=== PATIENT | male | born 1970 | race Caucasian/White ===

== ENCOUNTER 2019-08-22 23:03 | Emergency (ER) | payer MEDICAID ==
--- NOTE | 2019-08-22 23:15 | NUR ---
Attempted to triage pt, NAx1
--- NOTE | 2019-08-22 23:21 | NUR ---
This rn inquired w/registration and reg stated he LWBS.
[2019-08-23] MEDS ORDERED: CEPH500T PO (00:49)
[2019-08-23] MEDS ORDERED: PHEN100C4 PO (00:51)
[2019-08-23] MEDS ORDERED: RISP2TAB3 PO (00:51)
== END 2019-08-23 01:18 | disposition left against medical advice (07) ==
LOC: ED 08-23 01:00
DX: R06.02 Shortness of breath (principal); Z53.21 Procedure and treatment not carried out due to patient leaving prior to being seen by health care provider

== ENCOUNTER 2019-08-22 23:34 | Emergency (ER) | payer MEDICAID ==
[~2019-08-22] VITALS: Ht 172.7 cm; Wt 60.0 kg
[2019-08-23] MEDS ORDERED: IBUPROFEN 600 MG TABLET PO ONE (00:30)
[2019-08-23] MEDS ORDERED: PHENYTOIN 100 MG CAPSULE PO ONE (00:30)
[2019-08-23 00:37] LABS: BASOPHILS # (AUTO) 0.05 x10^3/uL (0-0.1); BASOPHILS % (AUTO) 1 % (0-1); EOSINOPHILS # (AUTO) 0.22 x10^3/uL (0-0.4); EOSINOPHILS % (AUTO) 2 % (1-7); LYMPHOCYTES # (AUTO) 2.18 x10^3/uL (1-3.4); LYMPHOCYTES % (AUTO) 23 % (22-44); MD NO; MEAN CORPUSCULAR HEMOGLOBIN 29.4 pg (27.5-34.5); MEAN CORPUSCULAR HGB CONC 33.3 g/dL (33.2-36.2); MEAN CORPUSCULAR VOLUME 88.3 fL (81-97); MONOCYTES # (AUTO) 0.93 x10^3/uL (0.2-0.8); MONOCYTES % (AUTO) 10 % (2-9); NEUTROPHILS # (AUTO) 5.95 x10^3/uL (1.8-6.8); NEUTROPHILS % (AUTO) 64 % (42-75); PLATELET COUNT 374 x10^3/uL (130-400); RED BLOOD COUNT 4.59 x10^6/uL (4.38-5.82); RED CELL DISTRIBUTION WIDTH 15.6 % (9.4-14.8)
[2019-08-23 00:44] LABS: ALANINE AMINOTRANSFERASE 63 U/L (12-78); ALBUMIN 3.5 g/dL (3.4-5.0); ANION GAP 8 mmol/L (5-15); CALCIUM 8.7 mg/dL (8.5-10.1); CHLORIDE 106 mmol/L (98-107); CREATININE 1.07 mg/dL (0.7-1.3)
[2019-08-23] MEDS ORDERED: IBUPROFEN 600 MG TABLET ONE (00:44)
[2019-08-23 00:48] LABS: ALKALINE PHOSPHATASE 114 U/L (45-117); BILIRUBIN,TOTAL 0.3 mg/dL (0.2-1.0); TOTAL PROTEIN 7.6 g/dL (6.4-8.2); TROPONIN I < 0.015 ng/mL (0.000-0.045)
[2019-08-23] MEDS ORDERED: CEPH500T PO (00:49)
[2019-08-23] MEDS ORDERED: RISP2TAB3 PO (00:51)
[2019-08-23] MEDS ORDERED: PHEN100C4 PO (00:51)
[2019-08-23 01:00] VITALS: BP 132/83
--- NOTE | 2019-08-23 01:06 | NUR ---
BREAK RN: PT AMBULATED TO DC LOBBY W/ A STEADY GAIT. PROVIDED BUS PASS AND NEW SOCKS UPON REQUEST. VERBALIZED UNDERSTANDING OF DC INSTRUCTIONS.
== END 2019-08-23 01:12 | disposition home or self-care (01) ==
LOC: ED 08-23 00:34
DX: M94.0 Chondrocostal junction syndrome [Tietze] (principal); G40.804 Other epilepsy, intractable, without status epilepticus; F10.10 Alcohol abuse, uncomplicated; Y90.0 Blood alcohol level of less than 20 mg/100 ml; F15.20 Other stimulant dependence, uncomplicated; F17.210 Nicotine dependence, cigarettes, uncomplicated
CPT/HCPCS: 36415; 71045; 80053; 84484; 85025; 93005; 99285

== ENCOUNTER 2019-09-07 22:31 | Emergency (ER) | payer MEDICAID ==
[~2019-09-07] VITALS: Ht 170.2 cm; Wt 66.6 kg
[~2019-09-07 22:31] MED LIST: CEPH500T PO; PHEN100C4 PO; RISP2TAB3 PO
[2019-09-07 23:29] LABS: BASOPHILS # (AUTO) 0.04 x10^3/uL (0-0.1); BASOPHILS % (AUTO) 0 % (0-1); EOSINOPHILS # (AUTO) 0.17 x10^3/uL (0-0.4); EOSINOPHILS % (AUTO) 2 % (1-7); LYMPHOCYTES # (AUTO) 2.71 x10^3/uL (1-3.4); LYMPHOCYTES % (AUTO) 23 % (22-44); MD NO; MEAN CORPUSCULAR HEMOGLOBIN 29.5 pg (27.5-34.5); MEAN CORPUSCULAR HGB CONC 33.5 g/dL (33.2-36.2); MEAN CORPUSCULAR VOLUME 88.1 fL (81-97); MEAN PLATELET VOLUME 6.9 fL (7.4-10.4); MONOCYTES % (AUTO) 7 % (2-9); NEUTROPHILS # (AUTO) 8.04 x10^3/uL (1.8-6.8); NEUTROPHILS % (AUTO) 68 % (42-75); PLATELET COUNT 399 x10^3/uL (130-400); RED BLOOD COUNT 5.07 x10^6/uL (4.38-5.82); RED CELL DISTRIBUTION WIDTH 15.5 % (9.4-14.8)
[2019-09-07 23:41] LABS: ALBUMIN 3.6 g/dL (3.4-5.0); ANION GAP 8 mmol/L (5-15); CALCIUM 8.8 mg/dL (8.5-10.1); CHLORIDE 108 mmol/L (98-107)
[2019-09-07 23:41] LABS: AMPHETAMINE SCREEN, URINE Positive (Negative); BARBITURATE SCREEN, URINE Negative (Negative); BENZODIAZEPINE SCREEN, URINE Negative (Negative); CANNABINOID SCREEN, URINE Negative (Negative); COCAINE SCREEN, URINE Negative (Negative); METHADONE SCREEN, URINE Negative (Negative); OPIATE SCREEN, URINE Negative (Negative)
--- NOTE | 2019-09-07 23:42 | NUR ---
PT SITTING IN VIEW OF NURSES STATION, NO COMPLIANTS AT THIS TIME Addendum: 09/08/19 at 0325 by VEDA aminah boo is working in prior auth
[2019-09-07 23:45] LABS: ALANINE AMINOTRANSFERASE 35 U/L (12-78); ALKALINE PHOSPHATASE 129 U/L (45-117); BILIRUBIN,TOTAL 0.2 mg/dL (0.2-1.0); CREATININE 1.03 mg/dL (0.7-1.3); SALICYLATE LEVEL < 1.7 mg/dL (2.8-20.0); TOTAL PROTEIN 8.2 g/dL (6.4-8.2)
[2019-09-08] MEDS ORDERED: SERT50TA28 PO (00:37)
[2019-09-08] MEDS ORDERED: HYDR-2995 PO (00:37)
[2019-09-08] MEDS ORDERED: TRAZ-175 PO (00:38)
--- NOTE | 2019-09-08 01:13 | NUR ---
PT MOVED TO ROOM 3, TWO BAGS OF BELONGINGS PLACED IN SAFE KEEPING, ROOM SECURE, SITTER IN VIEW
--- NOTE | 2019-09-08 01:22 | NUR ---
TASK RN: REPORT TO SOC MD. PT PREPARED FOR TELEPSYCH CONSULT
--- NOTE | 2019-09-08 02:08 | NUR ---
SOC suggests the pt should be placed on a hold
--- NOTE | 2019-09-08 02:38 | NUR ---
5 BAGS OF BELONGINGS PLACED IN LOCKER
--- NOTE | 2019-09-08 04:02 | NUR ---
PT SLEEPING, RESPIRATIONS EVEN AND UNLABORED. ROOM REMAINS SECURE, SITTER OUTSIDE DOOR
--- NOTE | 2019-09-08 05:34 | NUR ---
PT SLEEPING, RESPIRATIONS EVEN AND UNLABORED. NO DISTRESS NTOED. ROOM REMAINS SECURE, SITTER OUTSIDE DOOR
--- NOTE | 2019-09-08 06:42 | NUR ---
PT CONTINUES TO SLEEP, NO DISTRESS NOTED. RESPIRATIONS EVEN AND UNLABORED. SITTER OUTSIDE DOOR, ROOM REMAINS SECURE
--- NOTE | 2019-09-08 07:02 | NUR ---
Received bedside report from Elizabeth Zhao. All questions answered. Pt resting with eyes closed and unlabored respirations with even chest rise and fall. No needs expressed at this time. Room secured for SI/HI. Sitter in direct line of sight for observation. Breakfast tray ordered for pt.
--- NOTE | 2019-09-08 08:23 | NUR ---
Pt resting supine on [facility] with eyes closed. Pt alert to voice and is cooperative with ED RN when staff obtaining vital signs, performing physical assessment, and performing suicide reassessment. Pt denies SI/HI at this time. Pt denies needs at this time. Pt denies pain at this time. Sitter in direct line of sight for observation. Room remains secured for SI/HI. Breakfast tray ordered.
--- NOTE | 2019-09-08 10:10 | NUR ---
LATE NOTE ENTRY FOR 929: Pt resting on gurney. Pt provided breakfast tray and ate entire breakfast tray. Pt has unlabored respirations with even chest rise and fall. No needs expressed at this time. sitter near doorway in direct line of sight for observation.
--- NOTE | 2019-09-08 10:11 | NUR ---
Pt resting on gurney with eyes closed and unlabored respirations with even chest rise and fall. No needs expressed at this time. Sitter in direct line of sight for observation.
--- NOTE | 2019-09-08 10:34 | NUR ---
Psych HOOK AND EYE SEWING MACHINE OPERATOR at bedside with pt at this time. Sitter in direct line of sight for observation. No needs expressed at this time.
--- NOTE | 2019-09-08 12:36 | NUR ---
Lunch tray provided to pt. Sitter at bedside in direct line of sight for observation. No needs expressed at this time. Spoke to [place] at [facility]. [facility] accepting doctor requesting Dilantin lab draws per pt statement to provider of "overdosing on 8-10 of my Dilantin". EDND placed lab order.
--- NOTE | 2019-09-08 13:24 | NUR ---
PT SLEEPING IN ROOM. SITTER MONITORING FROM [facility] FOR SAFETY. ROOM REMAINS SECURE.
--- NOTE | 2019-09-08 14:22 | NUR ---
report given to ida at this time. will call us back later.
--- NOTE | 2019-09-08 14:31 | NUR ---
PT SLEEPING. RESPS EVEN AND UNLABORED. SITTER MONITORING FROM [facility] FOR SAFETY. ROOM REMAINS SECURE.
--- NOTE | 2019-09-08 15:28 | NUR ---
PT SLEEPING. RESPS EVEN AND UNLABORED. SITTER MONITORING FROM [facility] FOR SAFETY. ROOM REMAINS SECURE.
--- NOTE | 2019-09-08 16:20 | NUR ---
PT SLEEPING. RESPS EVEN AND UNLABORED. SITTER MONITORING FROM [facility] FOR SAFETY. ROOM REMAINS SECURE.
--- NOTE | 2019-09-08 16:30 | NUR ---
CALLED AND NOTIFIED [facility] OF DIALNTIN LEVEL
--- NOTE | 2019-09-08 17:09 | NUR ---
PT SLEEPING. RESPS EVEN AND UNLABORED. SITTER MONITORING FROM [facility] FOR SAFETY. ROOM REMAINS SECURE.
--- NOTE | 2019-09-08 17:39 | NUR ---
MEAL TRAY ORDERED AT THIS TIME.
--- NOTE | 2019-09-08 18:33 | NUR ---
PT SLEEPING. RESPS EVEN AND UNLABORED. SITTER MONITORING FROM [facility] FOR SAFETY. ROOM REMAINS SECURE.
--- NOTE | 2019-09-08 19:00 | NUR ---
REPORT GIVEN TO MARQUES BREWER.
--- NOTE | 2019-09-08 19:09 | NUR ---
ASSUMED CARE OF PT. SLEEPING, IN NO ACUTE DISTRESS, RESPIRATIONS EVEN AND UNLABORED. SITTER AT DOOR FOR SAFETY MONITORING.
--- NOTE | 2019-09-08 20:43 | NUR ---
DEMETRIS RN: LABS FAXED PER [facility] REQUEST @ [id number]. CALLED AT [phone] TO FOLLOW UP. PER TECH, "THE NURSE IS ON THE PHONE WITH THE DOCTOR NOW DISCUSSING THIS PATIENT". AWAITING CALL FOR DENIAL OR ACCEPTANCE
[2019-09-08] MEDS ORDERED: RISPERIDONE 1 MG TABLET PO SCH (21:00)
--- NOTE | 2019-09-08 21:59 | NUR ---
REQUESTED MED FROM PHARMACY.
--- NOTE | 2019-09-08 22:15 | NUR ---
MEDICATED PT PER MAR.
--- NOTE | 2019-09-08 22:32 | NUR ---
TP RN: PT ACCEPTED BY [facility], ADMITTING MD TATUM
--- NOTE | 2019-09-08 22:45 | NUR ---
REPORT GIVEN TO JILL AT [facility]. AWAITING TRANSPORT STAFF FOR TRANSFER.
[2019-09-08 22:50] VITALS: BP 120/80
--- NOTE | 2019-09-09 00:24 | NUR ---
TASK RN: [facility] HERE TO TRANSPORT PT TO [facility]. Addendum: 09/09/19 at 0025 by MARYANNE ALL BELONGINGS WITH PT
== END 2019-09-09 00:30 ==
LOC: ED 09-08 01:39
DX: F33.1 Major depressive disorder, recurrent, moderate (principal); F15.129 Other stimulant abuse with intoxication, unspecified; Z72.9 Problem related to lifestyle, unspecified
CPT/HCPCS: 36415; 80053; 80185; 80307; 85025; 99285

== ENCOUNTER 2019-09-16 01:26 | Emergency (ER) | payer MEDICAID ==
[~2019-09-16] VITALS: Ht 170.2 cm; Wt 62.8 kg
[~2019-09-16 01:26] MED LIST changes: +HYDR-2995 PO; +SERT50TA28 PO; +TRAZ-175 PO
[2019-09-16 01:56] VITALS: BP 138/94
--- NOTE | 2019-09-16 02:11 | NUR ---
PT STATED THAT HE WANTED A [employer] CAB VOUCHER AND DID NOT WANT TO BE SEEN FOR A COMPLAINT DR LOPEZ IN TO SEE PT
== END 2019-09-16 02:24 | disposition home or self-care (01) ==
LOC: ED 02:00
DX: Z72.9 Problem related to lifestyle, unspecified (principal); Z59.0 Homelessness
CPT/HCPCS: 99281